=== PATIENT | female | born 1970 | race Caucasian/White ===

== ENCOUNTER 2023-10-02 20:36 | Emergency (ER) | payer BC, SELFPAY ==
[2023-10-02 20:42] VITALS: BP 157/104
[2023-10-02 21:14] LABS: % Basophils 0.4 % (0-2); % Eosinophils 1.3 % (0-6); % Immature Granulocytes 0.3 % (0-0.5); % Lymphocytes 8.3 % (20.5-51.1); % Monocytes 7.3 % (1.7-9.3); % Neutrophils 82.4 % (42.2-75.2); Absolute Eosinophils 0.1 10^3/uL (0-0.7); Absolute Lymphocytes 0.6 10^3/uL (1.2-3.4); Absolute Monocytes 0.6 10^3/uL (0.1-0.6); Absolute Neutrophils 6.3 10^3/uL (1.4-6.5); Hematocrit 37.3 % (37.0-47.0); Hemoglobin 13.2 g/dL (12.0-16.0); Mean Corp Hgb Conc. 35.4 g/dL (33.0-37.0); Mean Corpuscular Hgb 30.1 pg (27.0-31.0); Nucleated Red Blood Cells % 0 %; Platelet Count 236 10^3/uL (130-400); Red Blood Cell Count 4.39 10^6/uL (4.20-5.40); Red Cell Dist. Width 13.5 % (11.5-14.5); White Blood Cell Count 7.6 10^3/uL (4.8-10.8)
[2023-10-02 21:20] LABS: COVID-19 Antigen Positive (Negative)
[2023-10-02 21:28] LABS: ALT (SGPT) 17 U/L (0-35); AST (SGOT) 22 U/L (14-36); Albumin 4.2 g/dl (3.5-5.0); Alkaline Phosphatase 95 U/L (38-126); Blood Urea Nitrogen 9 mg/dl (7-17); Calcium 9.6 mg/dl (8.4-10.2); Carbon Dioxide 25 mmol/L (22-30); Chloride 99 mmol/L (98-107); Glucose 115 mg/dl (70-99); Potassium 3.8 mmol/L (3.5-5.1); Sodium 134 mmol/L (135-145); Total Bilirubin 0.8 mg/dl (0.2-1.3); Total Protein 7.1 g/dl (6.3-8.2); eGFR > 60.00
[2023-10-02 21:37] LABS: Lactic Acid 1.1 mmol/L (0.7-2.0)
[2023-10-02 22:23] VITALS: BP 155/93
[2023-10-02] MEDS: TYLENOL 1000 MG PO (22:32)
--- NOTE | 2023-10-02 22:59 | ED.GENMED ---
History of Present Illness
General
Chief Complaint: Fever
Source: patient and family
Time Seen by Provider: 10/02/23 22:37
Travel History
Have you had any contact with someone who has COVID-19?: No
Do you have any symptoms of coronavirus? Fever > 100 degrees, chills, cough, shortness of breath, sore throat, loss of taste or smell, muscle aches, or headache?: Yes
Symptoms:: cough
History of Present Illness
History of Present Illness:
53-year-old female presents with bodyaches, fevers, chills little bit sore throat. Patient states she was sick back in August and tested negative for COVID. Her PCP suspected influenza at that time. She did go over. She began yesterday with the
same symptoms. She was worried that it could be related to her trigeminal neuralgia medication that she recently increased with her neurologist. Denies shortness of breath.
Past History
Past History
ED Past Medical History: Other (Trigeminal neuralgia)
ED Past Surgical History: Other (Hernia, salpingo-oophorectomy, hysterectomy, septoplasty)
Social History
Tobacco: Non-smoker
Alcohol: None
Drug: None
Personal:
Employment: Employed
Phy Exam
Physical Exam
Physical Exam:
CONSTITUTIONAL Vital signs reviewed, Patient alert and oriented to person, place and time. Well-appearing
HEAD atraumatic, normocephalic.
EYES eyelids normal to inspection, Extraocular muscles intact, Conjunctiva normal, Sclera normal.
NECK normal range of motion, Trachea midline, no jugular venous distention.
RESP no respiratory distress
BACK No obvious deformities
UPPER EXTREMITY Gross Range of motion normal, gross motor strength normal
LOWER EXTREMITY Gross range of motion normal, Gross motor strength normal
NEURO Speech normal, No focal motor deficits include, Bri coma scale 15, Memory normal, Cranial Nerves intact to screening exam.
SKIN Skin warm, dry, and normal in color.
PSYCHIATRIC Patient oriented to person place and time, Normal affect.
Course
Orders/Labs/Results
Orders:
Orders
10/02/23 20:45
Electrocardiogram (*1) Urgent
Reason for Study: Other
Other Reason for Exam: Possible Sepsis
Cardiac Monitoring- Treatment ONCE
EKG- Treatment ONCE
O2 Therapy [RESP] Urgent
Titrate/Wean O2 to maintain O2 sat greater than (%): 93
Special Instructions: TO MAINTAIN CONTINUOUS O2 SATS > OR = 93%
Pulse Ox/cont/shift [RESP] Urgent
Quantity: 1
Special Instructions: CONTINUOUS
10/02/23 20:57
COVID-19 Antigen Urgent
Source: Nasal Swab
Complete Blood Count/With Diff Urgent
Comprehensive Metabolic Panel Urgent
Lactic Acid Q4H
Comment: ON ICE, CANCEL 2ND ORDER IF FIRST LACTIC ACID LEVEL <2
Blood Culture Q30M
PARISH Source: Blood/Venous
Specimen Description:
Comment: FROM 2 SEPARATE SITES
Influenza A+B Rapid Molecular Urgent
PARISH Source: Nasal Swab
Specimen Description:
10/02/23 21:15
Blood Culture Q30M
PAR[place] Source: Blood/Venous
Specimen Description:
Comment: FROM 2 SEPARATE SITES
10/02/23 22:29
Acetaminophen [Tylenol] 1,000 mg .ROUTE .STK-MED ONE
10/02/23 22:31
Acetaminophen [Tylenol] 1,000 mg PO NOW STA
Abnormal Lab Results
10/02/23
20:57
Absolute Lymphs (auto) 0.6 L 10^3/uL
(1.2-3.4)
Neutrophils % 82.4 H %
(42.2-75.2)
Lymphocytes % 8.3 L %
(20.5-51.1)
Sodium 134 L mmol/L
(135-145)
Glucose 115 H mg/dl
(70-99)
SARS-CoV-2 Antigen Positive A
(Negative)
10/02/23 20:57
10/02/23 20:57
Vital Signs
Initial and Last Documented VS:
Initial Vital Signs
Temp Pulse Resp BP Pulse Ox
102.1 F H 112 19 157/104 95
10/02/23 20:42 10/02/23 20:42 10/02/23 20:42 10/02/23 20:42 10/02/23 20:42
Last Documented Vital Signs
Temp Pulse Resp BP Pulse Ox
102.1 F H 94 20 155/93 98
10/02/23 20:42 10/02/23 22:23 10/02/23 22:23 10/02/23 22:23 10/02/23 22:23
MDM/Problems Addressed
Differential Diagnosis Includes:
Influenza, sepsis, bacteremia, pneumonia, COVID-19, viral send
MDM/Problems Addressed:
COVID-19
*Pulse Oximetry
Patient hypoxic: no
*Critical Care Note
Total Time (30-74mins, 75-104mins- exclusive of procedures): Not Applicable
Data Reviewed
Source: patient and family
Further Testing Considered But Not Given:
Consider chest x-ray but COVID positive with no hypoxia
Patient Management
Escalation/DeEscalation of care consider admission/obs:
Patient appears well. No indication for Paxlovid. Okay for discharge and outpatient follow-up
ED Attending Note
-
Portions of this chart may have been created with voice recognition software.� Occasional wrong word or��sound alike� substitutions may have occurred due to the inherent limitations of voice recognition software.
Discharge Plan
Departure
Patient Disposition: Home (Routine Discharge)
Date of Disposition: 10/02/23
Time of Disposition: 23:00
Patient with high blood pressure during this ER visit?: Yes
Discharge Problem:
COVID-19
Instructions: Fever, Adult (DC), COVID-19 (DC)
Prescriptions:
No Action
norgestrel-ethinyl estradiol [Cryselle (28)] 1 TAB tablet
1 tab PO DAILY
cephalexin 250 MG capsule
250 mg PO BID Qty: 20 0RF
oxycodone-acetaminophen 5 MG/325 MG tablet
1 tab PO Q4HPRN PRN (Reason: pain) Qty: 10 0RF
Referrals:
Tay Mckeon DO [Family Provider] -
Activity Restrictions/Additional Instructions:
Please use Tylenol and ibuprofen for fevers. Drink plenty of fluids. Continue vitamin D, vitamin C and zinc. Return for difficulty breathing, changes in mentation, weakness or any other concerns.
Interventions
Interventions:
*Risk Screen - Suicide Last Done: 10/02/23 20:42
*General Assessment Last Done: 10/02/23 20:42
*Neglect/Abuse Screening Last Done: 10/02/23 20:42
*ED COVID-19 Vaccine History Last Done: 10/02/23 20:42
== END 2023-10-02 23:26 | disposition home or self-care (01) ==
LOC: EMR 20:36
PROVIDERS: EMERGENCY PHYSICIAN Emergency Medicine; FAMILY PHYSICIAN Family Medicine
DX: U07.1 COVID-19 (principal); Z11.52 Encounter for screening for COVID-19; R03.0 Elevated blood-pressure reading, without diagnosis of hypertension; G50.0 Trigeminal neuralgia
CPT/HCPCS: 99283; 80053; 83605; 85025; 87040; 87502; 87811; 93005

== ENCOUNTER → 2023-12-09 06:58 | Outpatient (REF) | payer BC, SELFPAY | LOC: MRI 3T 06:58 | PROVIDERS: ATTENDING PHYSICIAN Psychiatry & Neurology Neurology; FAMILY PHYSICIAN Family Medicine | DX: G44.52 New daily persistent headache (NDPH) (principal) | CPT/HCPCS: 70551 ==

== ENCOUNTER 2024-06-22 11:53 | Emergency (ER) | payer BC, SELFPAY ==
[2024-06-22 11:59] VITALS: BP 178/117
--- NOTE | 2024-06-22 12:50 | ED.GENMED ---
History of Present Illness
General
Chief Complaint: Headache
Source: patient
Exam Limitations: none
Time Seen by Provider: 06/22/24 12:41
Nursing documentation reviewed up to this point in time: agreed with
History of Present Illness
History of Present Illness:
Patient with history of migraine headache and trigeminal neuralgia, currently being followed by neurology at [facility], presents to Emergency Department after waking up this morning with what patient describes as typical migraine
headache, associated with continual nausea and vomiting. Denies fever or chills. Denies recent illness. Denies recent change in medications or diet. Patient states that she was at her baseline health when she went to sleep last night. Denies
diarrhea. Denies coughing. Denies sore throat. Denies chest pain. Denies coughing. Denies shortness of breath.
Past History
Past History
ED Past Medical History: Other (Trigeminal neuralgia)
ED Past Surgical History: Other (Hernia, salpingo-oophorectomy, hysterectomy, septoplasty)
Social History
Tobacco: Non-smoker
Alcohol: None
Drug: None
Personal:
Employment: Employed
Review of Systems
Review of Systems
Allergies reviewed?: Yes
All Other Systems: ROS reviewed and negative except as documented in HPI and ROS
Constitutional: Reports no symptoms
EENT: Reports no symptoms
Respiratory: Reports no symptoms; Denies trouble breathing
Cardiac: Reports no symptoms
ABD/GI: Reports nausea and vomiting; Denies abdominal pain
Musculoskeletal: Reports no symptoms
Skin: Reports no symptoms
Neurological: Reports headache
Phy Exam
Physical Exam
Physical Exam:
Physical Exam
General: mild distress, not acutely ill. afebrile
Head: nc/at. eomi
Neck: supple. no meningeal signs.
Heart: s1/s2 regular rate and rhythm, no murmur. equal radial pulses.
Lungs: no acute respiratory distress. clear bilaterally
Abdomen: normal bowel sounds. not tender.
Neuro: alert and oriented. no focal neurological deficits
Skin: no rash
Psychiatric: well kept. interactive and cooperative
Extremities: no edema. no calf tenderness.
Course
Orders/Labs/Results
Orders:
Orders
06/22/24 12:49
Diphenhydramine [Benadryl] 25 mg IV NOW STA
Ketorolac [Toradol] 15 mg IV NOW STA
Metoclopramide [Reglan] 10 mg IV NOW STA
Test Result ONCE
06/22/24 12:50
0.9% Sodium Chloride 500 ml [Nss] 500 ml IV BOLUS
06/22/24 12:59
Basic Metabolic Panel Urgent
Complete Blood Count/No Diff Urgent
HCG, Serum Qualitative Screen Urgent
Magnesium Urgent
06/22/24 13:43
Morphine Sulfate 2 mg IV NOW STA
Ondansetron Injectable [Zofran] 4 mg IV NOW STA
Abnormal Lab Results
06/22/24
12:59
Chloride 94 L mmol/L
(98-107)
Glucose 144 H mg/dl
(70-99)
06/22/24 12:59
06/22/24 12:59
Vital Signs
Initial and Last Documented VS:
Initial Vital Signs
Temp Pulse Resp BP Pulse Ox
97 F 71 16 178/117 100
06/22/24 11:59 06/22/24 11:59 06/22/24 11:59 06/22/24 11:59 06/22/24 11:59
Last Documented Vital Signs
Temp Pulse Resp BP Pulse Ox
97 F 70 18 168/87 100
06/22/24 11:59 06/22/24 13:51 06/22/24 13:51 06/22/24 13:51 06/22/24 13:51
MDM/Problems Addressed
MDM/Problems Addressed:
Patient reports significant improvement in symptoms after treatment. Patient remains afebrile, hemodynamically stable, and without any neurological deficit. Patient will be discharged home in stable condition, to the care of her family, with
recommendation to follow-up with her neurologist for continual evaluation and treatment.
*Critical Care Note
Total Time (30-74mins, 75-104mins- exclusive of procedures): Not Applicable
ED Attending Note
-
Portions of this chart may have been created with voice recognition software.� Occasional wrong word or��sound alike� substitutions may have occurred due to the inherent limitations of voice recognition software.
Discharge Plan
Departure
Patient Disposition: Home (Routine Discharge)
Date of Disposition: 06/22/24
Time of Disposition: 14:15
Patient with high blood pressure during this ER visit?: Yes
Condition: Good
Discharge Problem:
Headache
Instructions: Headache, Adult (DC)
Prescriptions:
New
ondansetron 4 mg Tablet,Disintegrating
4 mg PO TIDPRN PRN (Reason: nausea/vomiting) Qty: 12 0RF
No Action
norgestrel-ethinyl estradiol [Cryselle (28)] 1 TAB tablet
1 tab PO DAILY
cephalexin 250 MG capsule
250 mg PO BID Qty: 20 0RF
oxycodone-acetaminophen 5 MG/325 MG tablet
1 tab PO Q4HPRN PRN (Reason: pain) Qty: 10 0RF
Referrals:
Tay Mckeon DO [Family Provider] -
Activity Restrictions/Additional Instructions:
As discussed, please follow-up with your neurologist for continual evaluation and treatment. Your prescription has been sent electronically to [facility] in [place].
Interventions
Interventions:
*Risk Screen - Suicide Last Done: 06/22/24 12:00
*General Assessment Last Done: 06/22/24 13:07
*Neglect/Abuse Screening Last Done: 06/22/24 12:00
ED- Fall Risk Assessment Last Done: 06/22/24 13:07
*ED COVID-19 Vaccine History Last Done: 06/22/24 12:00
*Nursing Disposition Last Done: 06/22/24 14:42
ED- Neurological Assessment Last Done: 06/22/24 13:07
Discharge Date and Time
Discharge Date/Time: 06/22/24 14:42
Print Language: MONGOLIAN
[2024-06-22] MEDS: BENADRYL 25 MG IV (12:59)
[2024-06-22] MEDS: REGLAN 10 MG IV (12:59)
[2024-06-22] MEDS: TORADOL 15 MG IV (13:00)
[2024-06-22] MEDS: NSS 500 IV (13:00)
[2024-06-22 13:13] LABS: Hematocrit 38.4 % (37.0-47.0); Hemoglobin 13.6 g/dL (12.0-16.0); Mean Corp Hgb Conc. 35.4 g/dL (33.0-37.0); Mean Corpuscular Hgb 29.8 pg (27.0-31.0); Mean Platelet Volume 9.6 fL (7.4-10.4); Platelet Count 228 10^3/uL (130-400); Red Blood Cell Count 4.57 10^6/uL (4.20-5.40); Red Cell Dist. Width 12.8 % (11.5-14.5); White Blood Cell Count 7.3 10^3/uL (4.8-10.8)
[2024-06-22 13:25] LABS: HCG, Serum Qualitative Screen Negative
[2024-06-22 13:30] LABS: Blood Urea Nitrogen 15 mg/dl (7-17); Calcium 9.8 mg/dl (8.4-10.2); Carbon Dioxide 27 mmol/L (22-30); Chloride 94 mmol/L (98-107); Glucose 144 mg/dl (70-99); Magnesium 1.9 mg/dl (1.6-2.3); Potassium 4.4 mmol/L (3.5-5.1); Sodium 136 mmol/L (135-145); eGFR > 60.00
[2024-06-22] MEDS: MORPHINE SULFATE 2 MG IV (13:48)
[2024-06-22] MEDS: ZOFRAN 4 MG IV (13:48)
[2024-06-22 13:51] VITALS: BP 168/87
== END 2024-06-22 14:42 | disposition home or self-care (01) ==
LOC: EMR 11:53
PROVIDERS: EMERGENCY PHYSICIAN Emergency Medicine; FAMILY PHYSICIAN Family Medicine
DX: G43.909 Migraine, unspecified, not intractable, without status migrainosus (principal); G50.0 Trigeminal neuralgia; Z90.710 Acquired absence of both cervix and uterus; Z90.721 Acquired absence of ovaries, unilateral
CPT/HCPCS: 96374; 96375; 99284; 70450; 80048; 83735; 84703; 85027

== ENCOUNTER 2024-06-22 19:27 | Emergency (ER) | payer BC, SELFPAY ==
[2024-06-22 19:28] VITALS: BP 158/100
[2024-06-22] MEDS: TORADOL 15 MG IV ×2 (20:33→21:55)
[2024-06-22] MEDS: DECADRON 10 MG IV (20:33)
[2024-06-22] MEDS: BENADRYL 25 MG IV ×2 (20:33→21:55)
[2024-06-22] MEDS: REGLAN 10 MG IV (20:33)
[2024-06-22] MEDS: NSS 500 IV (20:34)
[2024-06-22] MEDS: MAGNESIUM SULFATE 50 IV (20:34)
[2024-06-22 20:41] VITALS: BMI 33.2
--- NOTE | 2024-06-22 20:58 | ED.GENMED ---
History of Present Illness
<Margot Banks PA-C - Last Filed: 06/22/24 23:09>
General
Chief Complaint: Headache
Source: patient and records
Time Seen by Provider: 06/22/24 20:08
History of Present Illness
History of Present Illness:
54yoF with a history of migraines and trigeminal neuralgia presenting with her for evaluation of a headache. The headache began this morning and woke her up from sleep around 5:30am. The pain is located frontally and bitemporally. The pain
is in a different location from her typical trigeminal neuralgia headaches. She took indomethacin this morning without relief. She was seen in the ED earlier today for her headache. She improved after receiving a migraine cocktail and was
discharged. After she woke up from a nap after discharge, her headache began worsening again. Headache is currently a 10/10 in severity although she denies this being the worst headache of her life. She reports associated nausea, vomiting, and
photophobia. No fevers or neck stiffness. No reported head trauma.
Past History
<Margot Banks PA-C - Last Filed: 06/22/24 23:09>
Past History
ED Past Medical History: Other (Trigeminal neuralgia)
ED Past Surgical History: Other (Hernia, salpingo-oophorectomy, hysterectomy, septoplasty)
Social History
Tobacco: Non-smoker
Alcohol: None
Drug: None
Personal:
Employment: Employed
Phy Exam
<Margot Banks PA-C - Last Filed: 06/22/24 23:09>
Physical Exam
Physical Exam:
Appears uncomfortable. Sitting in a dark room moaning in pain
General Physical Exam
General Presentation: mild distress
General Skin: warm and dry
General Habitus: normal
General Mental: alert
General Hydration: appears well hydrated
ENT Exam
ENT Exam: pharynx normal, neck supple and normocephalic
Additional ENT: No meningismus
Eye Exam
Eye Exam: PERRL, EOMI and conjunctiva normal
Neurological Exam
Neurological Exam: alert, no motor deficits and other (CN 2-12 grossly intact. 5/5 strength and gross sensation intact in all extremities.)
Thorndale Coma Scale
Eye Opening: Spontaneous
Verbal Response: Oriented
Motor Response: Obeys Commands
GCS Total Score: 15
Skin Exam
Skin Exam: normal color and warm/dry
Psychiatric Exam
Psychiatric Exam: normal mood/affect
<Omar Hutchinson DO - Last Filed: 06/22/24 22:48>
Thorndale Coma Scale
GCS Total Score: 15
Course
<Margot Banks PA-C - Last Filed: 06/22/24 23:09>
Orders/Labs/Results
Orders:
Orders
06/22/24 20:17
CT Head W/o Iv Contrast Urgent
Comment:
Reason For Exam: Acute headache
0.9% Sodium Chloride 500 ml [Nss] 500 ml IV BOLUS
Dexamethasone Sod Phosphate [Decadron] 10 mg IV NOW STA
Diphenhydramine [Benadryl] 25 mg IV NOW STA
Ketorolac [Toradol] 15 mg IV NOW STA
Magnesium Sulfate 2 Gram/50 ml [Magnesium Sulfate] 2 gram in 50 ml IV NOW
Metoclopramide [Reglan] 10 mg IV NOW STA
06/22/24 21:32
Acetaminophen [Tylenol] 1,000 mg PO NOW STA
Diphenhydramine [Benadryl] 25 mg IV NOW STA
Ketorolac [Toradol] 15 mg IV NOW STA
06/22/24 21:46
Valproate Sodium [Depacon] 1,000 mg 0.9% Sodium Chloride 50 ml [Nss] 50 ml IV NOW
Vital Signs
Initial and Last Documented VS:
Initial Vital Signs
Temp Pulse Resp BP Pulse Ox
97.7 F 79 18 158/100 100
06/22/24 19:28 06/22/24 19:28 06/22/24 19:28 06/22/24 19:28 06/22/24 19:28
Last Documented Vital Signs
Temp Pulse Resp BP Pulse Ox
97.7 F 78 18 150/78 100
06/22/24 19:28 06/22/24 22:06 06/22/24 22:06 06/22/24 22:06 06/22/24 22:06
<Omar Hutchinson, - Last Filed: 06/22/24 22:48>
Orders/Labs/Results
Orders:
Orders
06/22/24 20:17
CT Head W/o Iv Contrast Urgent
Comment:
Reason For Exam: Acute headache
0.9% Sodium Chloride 500 ml [Nss] 500 ml IV BOLUS
Dexamethasone Sod Phosphate [Decadron] 10 mg IV NOW STA
Diphenhydramine [Benadryl] 25 mg IV NOW STA
Ketorolac [Toradol] 15 mg IV NOW STA
Magnesium Sulfate 2 Gram/50 ml [Magnesium Sulfate] 2 gram in 50 ml IV NOW
Metoclopramide [Reglan] 10 mg IV NOW STA
06/22/24 21:32
Acetaminophen [Tylenol] 1,000 mg PO NOW STA
Diphenhydramine [Benadryl] 25 mg IV NOW STA
Ketorolac [Toradol] 15 mg IV NOW STA
06/22/24 21:46
Valproate Sodium [Depacon] 1,000 mg 0.9% Sodium Chloride 50 ml [Nss] 50 ml IV NOW
Vital Signs
Initial and Last Documented VS:
Initial Vital Signs
Temp Pulse Resp BP Pulse Ox
97.7 F 79 18 158/100 100
06/22/24 19:28 06/22/24 19:28 06/22/24 19:28 06/22/24 19:28 06/22/24 19:28
Last Documented Vital Signs
Temp Pulse Resp BP Pulse Ox
97.7 F 78 18 150/78 100
06/22/24 19:28 06/22/24 22:06 06/22/24 22:06 06/22/24 22:06 06/22/24 22:06
<Margot Banks PA-C - Last Filed: 06/22/24 23:09>
MDM/Problems Addressed
Differential Diagnosis Includes:
54yoF here with a headache that began this morning. C/o temporal and frontal 10/10 pain. Hx of migraines and trigeminal neuralgia. Seen in the ED earlier today for the same and discharged after receiving a migraine cocktail. She is presenting again
with a worsening headache. +N/v. +Photophobia. VSS. She appears uncomfortable on exam but is non-toxic. No focal neuro deficits or meningismus noted on exam. Differential diagnosis includes but is not limited to: migraine, trigeminal neuralgia,
tension headache, subarachnoid hemorrhage
Initial ED plan: Will obtain CT head given bounceback visit. IV migraine cocktail and reassess.
<Margot Banks PA-C - Last Filed: 06/22/24 23:09>
*Critical Care Note
Total Time (30-74mins, 75-104mins- exclusive of procedures): Not Applicable
<Margot Banks PA-C - Last Filed: 06/22/24 23:09>
Update Note
Update Note:
CT head is negative for acute findings. Patient ultimately received IV Depacon and 2nd round of migraine cocktail. Patient feeling significantly improved on reassessment and headache is now a 4/10 in severity. She feels well for discharge.
Supportive care discussed. She has an appt scheduled with her neurologist in 2 days. ED return precautions discussed. She expressed understanding and is agreeable to plan. She was discharged in stable condition.
ED Attending Note
<Margot Banks PA-C - Last Filed: 06/22/24 23:09>
-
Portions of this chart may have been created with voice recognition software.� Occasional wrong word or��sound alike� substitutions may have occurred due to the inherent limitations of voice recognition software.
<Omar Hutchinson DO - Last Filed: 06/22/24 22:48>
ED Attending Note
Patient seen and examined by attending physician: Yes
I performed the substantive portion of visit, reviewed & personally made and approve the management plan that is documented in note by myself or CONCHITA.: Yes
ED Attending Note:
Patient is a 54-year-old female with a history of migraine/cluster headaches as well as trigeminal neuralgia who awoke at 5:30 AM with a headache that she described as a sharp pain and around her head and it was more intense same thing she had felt
before. Patient denies any recent illnesses or injuries. Patient had repeated nausea and vomiting throughout the day. Patient was photophobic initially. Patient denies any speech difficulties, focal weakness or ataxia. Patient was seen earlier
and medicated and felt better however when she woke up from a nap this afternoon she felt worse and came to the emergency department. Patient's EKG is unremarkable. On physical exam patient at this time is feeling somewhat better. Patient is
normocephalic and supple neck. Neurologically the patient is intact. Will try to achieve improved symptoms with the use of Decadron Depakote but anticipate the patient being discharged.
Discharge Plan
Departure
Patient Disposition: Home (Routine Discharge)
Date of Disposition: 06/22/24
Time of Disposition: 23:05
Patient with high blood pressure during this ER visit?: Yes
Discharge Problem:
Acute nonintractable headache
Instructions: Headache, Adult (DC)
Prescriptions:
No Action
norgestrel-ethinyl estradiol [Cryselle (28)] 1 TAB tablet
1 tab PO DAILY
cephalexin 250 MG capsule
250 mg PO BID Qty: 20 0RF
oxycodone-acetaminophen 5 MG/325 MG tablet
1 tab PO Q4HPRN PRN (Reason: pain) Qty: 10 0RF
ondansetron 4 mg Tablet,Disintegrating
4 mg PO TIDPRN PRN (Reason: nausea/vomiting) Qty: 12 0RF
Referrals:
Tay Mckeon DO [Family Provider] -
Activity Restrictions/Additional Instructions:
Take Excedrin as needed for headaches. Take Zofran as needed for nausea. Drink plenty of fluids and rest.
Please follow-up with your neurologist on Saturday. Return to the ER with any new or worsening symptoms.
Interventions
Interventions:
*Risk Screen - Suicide Last Done: 06/22/24 19:28
*General Assessment Last Done: 06/22/24 19:28
*Neglect/Abuse Screening Last Done: 06/22/24 19:28
ED- Fall Risk Assessment Last Done: 06/22/24 21:47
*ED COVID-19 Vaccine History Last Done: 06/22/24 19:28
ED- Neurological Assessment Last Done: 06/22/24 21:47
Discharge Date and Time
Print Language: LAO
[2024-06-22] MEDS: TYLENOL 1000 MG PO (21:55)
[2024-06-22] MEDS: DEPACON 60 MG IV (22:00)
[2024-06-22 22:06] VITALS: BP 150/78
[2024-06-22 23:24] VITALS: BP 150/78
== END 2024-06-22 23:35 | disposition home or self-care (01) ==
LOC: EMR 19:27
PROVIDERS: EMERGENCY PHYSICIAN Emergency Medicine; FAMILY PHYSICIAN Family Medicine
DX: R51.9 Headache, unspecified (principal); G50.0 Trigeminal neuralgia; Z90.710 Acquired absence of both cervix and uterus; Z90.721 Acquired absence of ovaries, unilateral
CPT/HCPCS: 96365; 96375; 96376; 99284; 70450

== ENCOUNTER → 2024-10-17 10:46 | Outpatient (REF) | payer BC, SELFPAY | LOC: PAVMRI 10:46 | PROVIDERS: ATTENDING PHYSICIAN Psychiatry & Neurology Neurology; FAMILY PHYSICIAN Family Medicine | DX: G44.52 New daily persistent headache (NDPH) (principal); G44.059 Short lasting unilateral neuralgiform headache with conjunctival injection and tearing (SUNCT), not intractable | CPT/HCPCS: 70551 ==

== ENCOUNTER 2025-01-01 16:25 | Emergency (ER) | payer BC, SELFPAY ==
[2025-01-01 16:30] VITALS: BP 188/105
--- NOTE | 2025-01-01 17:24 | ED.GENMED ---
History of Present Illness
General
Chief Complaint: Overdose Unintentional
Source: patient
Exam Limitations: none
Time Seen by Provider: 01/01/25 16:50
Nursing documentation reviewed up to this point in time: agreed with
History of Present Illness
History of Present Illness:
The patient is a 54-year-old female with an office on history of trigeminal neuralgia who presents to the emergency department concerns of a medication overdose. Patient states that she is prescribed Trileptal 450 mg which she takes 3 times daily,
9 AM, 3 PM, and 9 PM. Today�patient says she was busy around 9 AM and took her initial dose at 10 AM. She then said she mixed up her medications and
Took another dose at 11:30 AM. She states initially she felt fine until few hours later when she felt very sleepy and fatigued. She reports numbness sensation in her face. She feels lightheaded and dizzy. Patient denies any chest pain or
shortness of breath. She has had no episodes of vomiting. She has not taken any additional doses since 11:30 AM. Patient's coworkers brought her to the emergency department for evaluation.
Past History
Past History
ED Past Medical History: Other (Trigeminal neuralgia)
ED Past Surgical History: Other (Hernia, salpingo-oophorectomy, hysterectomy, septoplasty)
Social History
Tobacco: Non-smoker
Alcohol: None
Drug: None
Personal:
Employment: Employed
Review of Systems
Review of Systems
Allergies reviewed?: Yes
All Other Systems: ROS reviewed and negative except as documented in HPI and ROS
Phy Exam
Physical Exam
Physical Exam:
Vitals: Hypertensive on arrival, otherwise stable vital signs. Afebrile
General: Patient is well appearing, no acute distress. Nontoxic appearing
Skin: Warm and dry, no rashes or lesions
Head: Normocephalic, atraumatic
Throat: Protecting airway
Neck: Normal ROM, no cervical spine tenderness
Cardiac: Regular rate and rhythm.
Pulm: No apparent respiratory distress. Lungs clear bilaterally
Abdomen: Soft and nontender.
Extremities: No evidence of cyanosis or edema. Palpable DP pulses bilaterally. Strength 5/5 in upper and lower extremities
Neuro: Alert and oriented x 3 grossly intact. Steady gait. Fluid speech. No facial droop or asymmetry. Normal finger-nose.
Psychiatric: Normal affect.
Course
Orders/Labs/Results
Orders:
Orders
01/01/25 17:44
0.9% Sodium Chloride 1000 ml [Nss] 1,000 ml IV BOLUS
01/01/25 18:19
Basic Metabolic Panel Urgent
Complete Blood Count/With Diff Urgent
01/01/25 19:40
LFT [[id number]] Urgent
Abnormal Lab Results
01/01/25
18:19
Hct 36.8 L %
(37.0-47.0)
Sodium 131 L mmol/L
(135-145)
Carbon Dioxide 21 L mmol/L
(22-30)
01/01/25 18:19
01/01/25 18:19
Vital Signs
Initial and Last Documented VS:
Initial Vital Signs
Temp Pulse Resp BP Pulse Ox
98.4 F 69 18 188/105 100
01/01/25 16:30 01/01/25 16:30 01/01/25 16:30 01/01/25 16:30 01/01/25 16:30
Last Documented Vital Signs
Temp Pulse Resp BP Pulse Ox
98.4 F 68 16 149/87 100
01/01/25 16:30 01/01/25 19:52 01/01/25 19:52 01/01/25 19:52 01/01/25 19:52
MDM/Problems Addressed
Differential Diagnosis Includes:
Not limited to: Accidental overdose, medication side effect, electrolyte abnormalities, etc.
MDM/Problems Addressed:
54-year-old female who presents with drowsiness, dizziness, facial numbness after incorrectly spacing out her Trileptal doses today. Patient took two 450 mg doses about 1.5 hours apart. She did not take any additional medication. She states this
was unintentional. Patient is hypertensive on arrival although improved by my assessment. Physical exam as above. Patient somewhat drowsy appearing although alert and oriented. Cardio/pulmonary assessment unremarkable. She is neurologically
intact on any gross deficits. Sensation of face is grossly intact. There is no facial droop or asymmetry. Overall low suspicion for toxic overdose as patient did not take any additional doses just did not correctly today. It has since been
almost 6 hours since she last took Trileptal at, which is the usual interval between her doses. However�will discuss with poison control for overall recommendations.
Update: Case was discussed with poison control who has low suspicion for electrolyte derangements given scenario of medication misuse today. No suspicion for toxic overdose. However�will obtain basic labs and give liter of IV fluids under
recommendation of poison control to ensure no abnormalities in liver function.
Update: After monitoring in the ED�patient symptoms have completely resolved. She is asymptomatic and ambulating steadily. Her vital signs have normalized. Her lab work shows no acute abnormalities. At this point�feel patient stable for
discharge home. Advised patient to continue to take medication as prescribed. Return precautions discussed.
Chronic conditions affecting care:
Trigeminal neuralgia
Acute Exacerbation and/or Progression of Chronic Illness:
N/A
*Pulse Oximetry
Patient hypoxic: no
*EKG
Interpreted by ED Provider?: NA
*Systems Support Specialist Interpretation
Rate: Systems Support Specialist- N/A
*Critical Care Note
Total Time (30-74mins, 75-104mins- exclusive of procedures): Not Applicable
Patient Management
Discussion with other providers: Other (Case discussed with poison control)
ED Attending Note
-
Portions of this chart may have been created with voice recognition software.� Occasional wrong word or��sound alike� substitutions may have occurred due to the inherent limitations of voice recognition software.
Discharge Plan
Departure
Patient Disposition: Home (Routine Discharge)
Date of Disposition: 01/01/25
Time of Disposition: 20:26
Patient with high blood pressure during this ER visit?: Yes
Condition: Good
Covid-19: Not Applicable
Discharge Problem:
Medication side effect
Instructions: BLOOD PRESSURE
Prescriptions:
No Action
norgestrel-ethinyl estradiol [Cryselle (28)] 1 TAB tablet
1 tab PO DAILY
cephalexin 250 MG capsule
250 mg PO BID Qty: 20 0RF
oxycodone-acetaminophen 5 MG/325 MG tablet
1 tab PO Q4HPRN PRN (Reason: pain) Qty: 10 0RF
ondansetron 4 mg Tablet,Disintegrating
4 mg PO TIDPRN PRN (Reason: nausea/vomiting) Qty: 12 0RF
Referrals:
UNKNOWN - PT DOES,NOT KNOW [Family Provider] -
Activity Restrictions/Additional Instructions:
RETURN TO THE EMERGENCY DEPARTMENT WITH ANY SEVERE HEADACHE, FEVER/CHILLS, PERSISTENT DIZZINESS/LIGHTHEADEDNESS, DIFFICULTY AMBULATING, CONFUSION, WORSENING CURRENT SYMPTOMS, OR ANY OTHER CONCERNS
- As discussed your lab work showed no acute abnormalities in the emergency department. Your sodium level was slightly low although you were given a liter of IV fluids. Please follow-up with your primary care to ensure this is trending up.
- Continue to take your medications as prescribed.
- Follow-up with primary care/neurology for further evaluation/management to ensure that symptoms are improving
Monitor your symptoms closely and return to the emergency department with any acute worsening/new symptoms or any other concerns
Interventions
Interventions:
*Risk Screen - Suicide Last Done: 01/01/25 16:30
*General Assessment Last Done: 01/01/25 16:30
*Neglect/Abuse Screening Last Done: 01/01/25 16:30
*Nursing Disposition Last Done: 01/01/25 20:39
ED- Cardiac Assessment Last Done: 01/01/25 16:58
ED- Neurological Assessment Last Done: 01/01/25 16:58
ED-Psychological Assessment Last Done: 01/01/25 16:59
ED- Pulmonary Assessment Last Done: 01/01/25 16:58
Discharge Date and Time
Discharge Date/Time: 01/01/25 20:39
Print Language: MONEGASQUE
[2025-01-01] MEDS: NSS 1000 IV (18:18)
[2025-01-01 18:38] LABS: % Basophils 0.5 % (0-2); % Eosinophils 2.1 % (0-6); % Immature Granulocytes 0.3 % (0-0.5); % Lymphocytes 23.9 % (20.5-51.1); % Monocytes 6.8 % (1.7-9.3); % Neutrophils 66.4 % (42.2-75.2); Absolute Eosinophils 0.1 10^3/uL (0-0.7); Absolute Lymphocytes 1.6 10^3/uL (1.2-3.4); Absolute Monocytes 0.5 10^3/uL (0.1-0.6); Absolute Neutrophils 4.4 10^3/uL (1.4-6.5); Hematocrit 36.8 % (37.0-47.0); Mean Corp Hgb Conc. 35.3 g/dL (33.0-37.0); Mean Corpuscular Hgb 29.8 pg (27.0-31.0); Mean Corpuscular Volume 84.4 fL (81.0-99.0); Nucleated Red Blood Cells % 0 %; Platelet Count 237 10^3/uL (130-400); Red Blood Cell Count 4.36 10^6/uL (4.20-5.40); Red Cell Dist. Width 12.8 % (11.5-14.5); White Blood Cell Count 6.7 10^3/uL (4.8-10.8)
[2025-01-01 18:48] LABS: Blood Urea Nitrogen 14 mg/dl (7-17); Calcium 9.1 mg/dl (8.4-10.2); Carbon Dioxide 21 mmol/L (22-30); Chloride 100 mmol/L (98-107); Glucose 93 mg/dl (70-99); Sodium 131 mmol/L (135-145); eGFR > 60.00
[2025-01-01 19:52] VITALS: BP 149/87
[2025-01-01 20:01] LABS: ALT (SGPT) 17 U/L (0-35); AST (SGOT) 17 U/L (14-36); Albumin 4.3 g/dl (3.5-5.0); Alkaline Phosphatase 103 U/L (38-126); Total Bilirubin 0.4 mg/dl (0.2-1.3); Total Protein 6.8 g/dl (6.3-8.2)
== END 2025-01-01 20:39 | disposition home or self-care (01) ==
LOC: EMR 16:25
PROVIDERS: Physician Assistant; EMERGENCY PHYSICIAN Student in an Organized Health Care Education/Training Program
DX: T50.991A Poisoning by other drugs, medicaments and biological substances, accidental (unintentional), initial encounter (principal); R53.83 Other fatigue; R40.0 Somnolence; R42 Dizziness and giddiness; X58.XXXA Exposure to other specified factors, initial encounter; G50.0 Trigeminal neuralgia; R20.0 Anesthesia of skin
CPT/HCPCS: 96360; 96361; 99284; 80048; 80076; 85025

== ENCOUNTER 2025-06-18 16:40 | Emergency (ER) | payer BC, SELFPAY ==
[2025-06-18 16:43] VITALS: BP 174/110
[2025-06-18 17:02] LABS: Hematocrit 39.6 % (37.0-47.0); Hemoglobin 13.7 g/dL (12.0-16.0); Mean Corp Hgb Conc. 34.6 g/dL (33.0-37.0); Mean Corpuscular Volume 88.2 fL (81.0-99.0); Nucleated Red Blood Cells % 0 %; Platelet Count 281 10^3/uL (130-400); Red Cell Dist. Width 12.8 % (11.5-14.5)
[2025-06-18 17:20] LABS: ALT (SGPT) 20 U/L (0-35); AST (SGOT) 19 U/L (14-36); Albumin 4.9 g/dl (3.5-5.0); Alkaline Phosphatase 119 U/L (38-126); Blood Urea Nitrogen 18 mg/dl (7-17); Calcium 9.6 mg/dl (8.4-10.2); Carbon Dioxide 27 mmol/L (22-30); Chloride 99 mmol/L (98-107); Glucose 112 mg/dl (70-99); Potassium 4.5 mmol/L (3.5-5.1); Sodium 135 mmol/L (135-145); Total Protein 7.6 g/dl (6.3-8.2); eGFR > 60.00
--- NOTE | 2025-06-18 19:26 | ED.GENMED ---
History of Present Illness
General
Chief Complaint: Headache
Source: patient and records
Exam Limitations: none
Time Seen by Provider: 06/18/25 19:08
Nursing documentation reviewed up to this point in time: agreed with
History of Present Illness
History of Present Illness:
55-year-old female cluster headache migraine headache trigeminal neuralgia followed at the [facility] multiple meds which she has been compliant with 6 days ago had a new headache pressure behind her eyes nausea without vomiting
lasted about half an hour improved with Tylenol
Has had her normal chronic right sided headaches since then, she sent a message to her neurologist who recommend she come to the ER for some imaging and evaluation
Past History
Past History
ED Past Medical History: Other (Trigeminal neuralgia)
ED Past Surgical History: Other (Hernia, salpingo-oophorectomy, hysterectomy, septoplasty)
Social History
Tobacco: Non-smoker
Alcohol: None
Drug: None
Personal:
Living: with family
Employment: Employed
Review of Systems
Review of Systems
All Other Systems: Not applicable
Constitutional: Denies fever or chills
EENT: Reports no symptoms
Respiratory: Reports no symptoms
Cardiac: Reports no symptoms
ABD/GI: Reports nausea
Neurological: Reports headache
Phy Exam
Physical Exam
Physical Exam:
Physical Exam
General: no apparent distress, not acutely ill Talkative in no acute distress
Neck:No jaundice
Heart: s1/s2 regular rate and rhythm, no murmur. equal radial pulses.
Lungs: no acute respiratory distress. clear bilaterally
Abdomen: not tender.
Neuro: alert and oriented. no focal neurological deficits
Skin: no rash
Psychiatric: well kept. interactive and cooperative
Extremities: no edema.
Course
Orders/Labs/Results
Orders:
Orders
06/18/25 16:53
CBC/With Diff [Complete Blood Count/With Diff] Urgent
Comprehensive Metabolic Panel Urgent
06/18/25 19:21
CT Head W/o Iv Contrast Urgent
Comment:
Reason For Exam: headache
06/18/25 19:23
0.9% Sodium Chloride 1000 ml [Nss] 1,000 ml IV BOLUS
Diphenhydramine [Benadryl] 50 mg IV NOW STA
Ketorolac [Toradol] 30 mg IV NOW STA
Metoclopramide [Reglan] 10 mg IV NOW STA
Abnormal Lab Results
06/18/25
16:53
Lymphocytes % 18.9 L %
(20.5-51.1)
BUN 18 H mg/dl
(7-17)
Glucose 112 H mg/dl
(70-99)
06/18/25 16:53
06/18/25 16:53
Vital Signs
Initial and Last Documented VS:
Initial Vital Signs
Temp Pulse Resp BP Pulse Ox
98.2 F 98 16 174/110 100
06/18/25 16:43 06/18/25 16:43 06/18/25 16:43 06/18/25 16:43 06/18/25 16:43
Last Documented Vital Signs
Temp Pulse Resp BP Pulse Ox
98.2 F 86 19 174/110 100
06/18/25 16:43 06/18/25 20:46 06/18/25 20:46 06/18/25 16:43 06/18/25 20:46
MDM/Problems Addressed
Differential Diagnosis Includes:
Tension headache migraine headache chronic headache subarachnoid hemorrhage no signs of TRAVELING BUYER infection
MDM/Problems Addressed:
Headache
Chronic conditions affecting care: Neurological disorder
Acute Exacerbation and/or Progression of Chronic Illness: Neurological disorder
*Radiology
Radiology exam reviewed: radiology read reviewed
*Pulse Oximetry
SaO2: 100
Oxygen Mode of Delivery: Room air
Patient hypoxic: no
*Break Off Worker Interpretation
Rate: Break Off Worker- N/A
*Critical Care Note
Total Time (30-74mins, 75-104mins- exclusive of procedures): Not Applicable
Data Reviewed
Review of Other/Old Records Reveals: Records and Radiology Studies
Source: patient
Update Note
Update Note:
9:15 PM update patient feeling better CT noted
ED Attending Note
-
Portions of this chart may have been created with voice recognition software.� Occasional wrong word or��sound alike� substitutions may have occurred due to the inherent limitations of voice recognition software.
Discharge Plan
Departure
Patient Disposition: Home (Routine Discharge)
Date of Disposition: 06/18/25
Time of Disposition: 21:18
Patient with high blood pressure during this ER visit?: Yes
Condition: Good
Discharge Problem:
Headache
Instructions: Headache, Adult (DC)
Prescriptions:
No Action
norgestrel-ethinyl estradiol [Cryselle (28)] 1 TAB tablet
1 tab PO DAILY
cephalexin 250 MG capsule
250 mg PO BID Qty: 20 0RF
oxycodone-acetaminophen 5 MG/325 MG tablet
1 tab PO Q4HPRN PRN (Reason: pain) Qty: 10 0RF
ondansetron 4 mg Tablet,Disintegrating
4 mg PO TIDPRN PRN (Reason: nausea/vomiting) Qty: 12 0RF
Referrals:
Tay Mckeon DO [Family Provider, Family Practice] - Next open appointment
Activity Restrictions/Additional Instructions:
Continue medications as prescribed follow-up with your neurologist and primary care provider
Interventions
Interventions:
*Risk Screen - Suicide Last Done: 06/18/25 16:43
*General Assessment Last Done: 06/18/25 20:51
*Neglect/Abuse Screening Last Done: 06/18/25 16:43
*ED- Fall Risk Assessment Last Done: 06/18/25 20:51
*ED COVID-19 Vaccine History Last Done: 06/18/25 20:51
*ED Influenza Vaccine History Last Done: 06/18/25 20:51
ED- Neurological Assessment Last Done: 06/18/25 20:51
Discharge Date and Time
Print Language: SLOVENIAN
[2025-06-18] MEDS: BENADRYL 50 MG IV (20:37)
[2025-06-18] MEDS: NSS 1000 IV (20:37)
[2025-06-18] MEDS: TORADOL 30 MG IV (20:39)
[2025-06-18] MEDS: REGLAN 10 MG IV (20:41)
[2025-06-18 21:31] VITALS: BP 144/86
== END 2025-06-18 21:58 | disposition home or self-care (01) ==
LOC: EMR 16:40
PROVIDERS: Emergency Medicine; EMERGENCY PHYSICIAN Emergency Medicine; FAMILY PHYSICIAN Family Medicine
DX: R51.9 Headache, unspecified (principal); G50.0 Trigeminal neuralgia; Z90.710 Acquired absence of both cervix and uterus; Z90.721 Acquired absence of ovaries, unilateral
CPT/HCPCS: 99284; 96374; 96375; 96361; 70450; 80053; 85025

== ENCOUNTER → 2025-08-16 13:54 | Outpatient (REF) | payer BC, SELFPAY | LOC: RCS 13:54 | PROVIDERS: ATTENDING PHYSICIAN Psychiatry & Neurology Neurology; FAMILY PHYSICIAN Family Medicine | DX: G44.52 New daily persistent headache (NDPH) (principal) | CPT/HCPCS: 93005 ==